=== PATIENT | female | born 2000 | race Two or more races ===

== ENCOUNTER 2021-06-29 14:30 | Inpatient (IN) | payer MEDICAID ==
[~2021-06-29] VITALS: Ht 165.1 cm; Wt 88.5 kg
[2021-06-29] MEDS ORDERED: LACTATED RINGER'S 0 ML IV ONE (16:00)
[2021-06-29] MEDS ORDERED: LACTATED RINGER'S 500 ML IV ONE (16:00)
[2021-06-29] MEDS ORDERED: WITCH HAZEL-GLYCERIN PAD TOP PRN (19:30)
[2021-06-29] MEDS ORDERED: PROMETHAZINE HCL 25 MG/ML 1ML IV PRN (19:30)
[2021-06-29] MEDS ORDERED: PROMETHAZINE HCL 25 MG/ML 1ML IM PRN (19:30)
[2021-06-29] MEDS ORDERED: PHISODERM TOP SOLN 240ML BTL TOP PRN (19:30)
[2021-06-29] MEDS ORDERED: BUTORPHANOL TARTRATE 2 MG/1 ML VIAL IV PRN ×2 (19:30)
[2021-06-29] MEDS ORDERED: DERMOPLAST 60ML BOTTLE TOP PRN (19:30)
[2021-06-29] MEDS ORDERED: PENICILLIN G POT 5MIL/D5 50ML 50 ML IV ONE (19:30)
[2021-06-29] MEDS ORDERED: LIDOCAINE 2%HCL (LOCAL ANESTH.) INJ 20ML MDV IJ PRN (19:30)
[2021-06-29] MEDS: LACTATED RINGER'S 1,000 ML IV SCH (20:29)
[2021-06-29 20:36] LABS: Basophils # (auto) 0 10 ^3/uL (0-0.2); Basophils % (auto) 0.3 % (0.0-2.0); Eosinophils # (auto) 0 10 ^3/uL (0-0.8); Hematocrit 37.7 % (36.0-46.0); Hemoglobin 12.3 g/dL (12.2-16.2); Lymphocytes # (auto) 1.5 10 ^3/uL (0.4-5.4); Lymphocytes % (auto) 12.1 % (10.0-50.0); Mean Corpuscular Hemoglobin 28.9 pg (28.0-32.0); Mean Corpuscular Hgb Conc. 32.7 g/dL (32.0-36.0); Mean Corpuscular Volume 88.3 fL (80.0-100.0); Monocytes # (auto) 0.5 10 ^3/uL (0-1.3); Monocytes % (auto) 3.8 % (0.0-12.0); Neutrophils # (auto) 10.4 10 ^3/uL (1.6-8.6); Neutrophils % (auto) 83.8 % (37.0-80.0); Red Blood Cells 4.27 10^6/uL (4.0-5.20); Red Cell Distribution Width 14.4 % (11.8-14.3); White Blood Cell 12.4 10^3/uL (4.4-10.8)
[2021-06-29 20:53] LABS: INR 0.96 (0.9-1.15); Partial Thromboplastin Time 25.4 sec (23.6-33.0)
[2021-06-29 20:54] LABS: Albumin 2.8 g/dL (3.4-5.0); Calcium 9.3 mg/dL (8.5-10.1); Potassium 3.7 mmol/L (3.5-5.1)
[2021-06-29 20:58] LABS: BUN/Creatinine Ratio 20.9; Bilirubin, Total 0.3 mg/dL (0.2-1.0); Total Protein 7.5 g/dL (6.4-8.2)
[2021-06-29 21:21] LABS: Alcohol, Urine < 3.0 mg/dL (0-10); Amphetamine Screen, Urine NEGATIVE (NEGATIVE); Barbiturate Scree,Urine NEGATIVE (NEGATIVE); Benzodiazephine Screen, Urine NEGATIVE (NEGATIVE); Cannabinoid Screen, Urine NEGATIVE (NEGATIVE); Cocaine Screen, Urine NEGATIVE (NEGATIVE); Opiate Scree,Urine NEGATIVE (NEGATIVE); Phencyclidine Screen, Urine NEGATIVE (NEGATIVE)
[2021-06-29 21:39] LABS: Urine Bacteria NONE SEEN /hpf (None Seen); Urine Blood Negative /uL (Negative); Urine Mucus FEW (None Seen); Urine Specific Gravity 1.012 (1.001-1.035); Urine WBC 2 /hpf (0 - 5)
[2021-06-29] MEDS ORDERED: PENICILLIN G POTASSIUM 2,500,000 UNITS in D5W 5% 50 ML IV SCH (23:30)
[2021-06-30] MEDS ORDERED: LACT. RINGERS/OXYTOCIN 20UNITS 500 ML IV ONE ×2 (00:45→01:15)
[2021-06-30] MEDS ORDERED: STERILE WATER 0 ML ONE (01:19)
[2021-06-30] MEDS ORDERED: PENICILLIN G POT 5MILLION UNIT VIAL ONE (01:19)
[2021-06-30] MEDS: PENICILLIN G POTASSIUM 2,500,000 UNITS in D5W 5% 50 ML IV SCH ×2 (01:53→05:47)
[2021-06-30] MEDS ORDERED: LACTATED RINGER'S 500 ML IV ONE (05:45)
[2021-06-30] MEDS ORDERED: ROPIVACAINE HCL 200 ML EPI SCH (05:45)
[2021-06-30] MEDS ORDERED: ePHEDrine SULFATE 50 MG/ML AMP IV ONE (05:45)
[2021-06-30] MEDS ORDERED: LIDOCAINE HCL 2 %PF INJ 10ML AMP IJ ONE (05:45)
[2021-06-30] MEDS ORDERED: NALOXONE HCL 0.4 MG/ML VIAL IV ONE (05:45)
[2021-06-30] MEDS ORDERED: fentaNYL CITRATE 100 MCG/2 ML VL IV ONE (05:45)
[2021-06-30] MEDS: LACTATED RINGER'S 1,000 ML IV SCH ×2 (05:48→07:48)
[2021-06-30] MEDS ORDERED: ACETAMINOPHEN 325 MG TAB PO PRN (12:15)
[2021-06-30 14:56] VITALS: BP 90/53
[2021-06-30 19:00] VITALS: BP 98/53
[2021-06-30] MEDS: IBUPROFEN 600 MG TAB PO PRN (19:23)
[2021-06-30 22:32] VITALS: BP 106/56
[2021-07-01 03:00] VITALS: BP 101/59
[2021-07-01] MEDS: IBUPROFEN 600 MG TAB PO PRN (03:50)
[2021-07-01 06:06] LABS: RPR Non Reactive (Non Reactive)
[2021-07-01 07:30] VITALS: BP 100/55
[2021-07-01 11:00] VITALS: BP 118/60
[2021-07-01] MEDS ORDERED: PREN-96 PO (12:46)
[2021-07-01 13:42] VITALS: BP 118/68
== END 2021-07-01 13:42 | disposition home or self-care (01) | DRG 560 ==
LOC: LDRP 14:30 → OBSVTOIN 19:50 → LDRP 19:51
PROVIDERS: ADMIT Obstetrics & Gynecology Obstetrics; ATTEND Obstetrics & Gynecology Obstetrics
PROC: 0KQM0ZZ Repair Perineum Muscle, Open Approach (ICD-10-PCS; 2021-06-29)
PROC: 00HU33Z Insertion of Infusion Device into Spinal Canal, Percutaneous Approach (ICD-10-PCS; principal; 2021-06-30)
PROC: 3E0R3BZ Introduction of Anesthetic Agent into Spinal Canal, Percutaneous Approach (ICD-10-PCS; 2021-06-30)
PROC: 10E0XZZ Delivery of Products of Conception, External Approach (ICD-10-PCS; 2021-06-30)
DX: O70.1 Second degree perineal laceration during delivery (principal); Z37.0 Single live birth; Z20.822 Contact with and (suspected) exposure to COVID-19; Z3A.38 38 weeks gestation of pregnancy
CPT/HCPCS: 36415; 59025; 59409; 62282; 80053; 80307; 81001; 81002; 85025; 85610; 85730; 86592; 86850; 86900; 86901; 87426; 94760; 96360; 96361; 96365; 96366; 96374; 96375; G0378; J2540; J2590; J7060